=== PATIENT | male | born 1975 | race Caucasian/White ===

== ENCOUNTER → 2019-09-16 17:41 | Outpatient (BNVA) | payer BC, SELFPAY | PROVIDERS: PCP Nurse Practitioner Family; Visit Provider Nurse Practitioner Family | DX: R07.9 Chest pain, unspecified (principal); Z72.0 Tobacco use; K92.89 Other specified diseases of the digestive system | CPT/HCPCS: 80053; 80061; 82550; 82553; 83721; 84484; 85025 ==